=== PATIENT | female | born 1985 | race Caucasian/White ===

== ENCOUNTER 2022-09-26 16:26 | Emergency (ER) | payer MEDICAID ==
[~2022-09-26] VITALS: Ht 170.2 cm; Wt 77.0 kg
[2022-09-26 16:31] VITALS: BP 112/75
[2022-09-26] MEDS ORDERED: acetaminophen 325mg tablet PO ONE (17:10)
[2022-09-26] MEDS ORDERED: ipratropium/albuterol 3ml nebule IH ONE (17:15)
[2022-09-26] MEDS ORDERED: ALBU18HF2 INH (17:35)
== END 2022-09-26 18:08 | disposition home or self-care (01) ==
LOC: ER 16:27
DX: B34.9 Viral infection, unspecified (principal); Z20.822 Contact with and (suspected) exposure to COVID-19; R50.9 Fever, unspecified; Z79.899 Other long term (current) drug therapy
CPT/HCPCS: 87502; 87503; 87635; 94640; 99283; C9803; 94760

== ENCOUNTER 2023-10-15 20:31 | Emergency (ER) | payer MEDICAID ==
[~2023-10-15] VITALS: Ht 170.2 cm; Wt 73.7 kg
[~2023-10-15 20:31] MED LIST: ALBU18HF2 INH
[2023-10-15 21:12] LABS: BASOPHILS % (AUTO) 0.6 % (0-1); EOSINOPHILS # (AUTO) 0.1 X10'3 (0-0.9); EOSINOPHILS % (AUTO) 1.5 % (0-6); HEMATOCRIT 33.8 % (35.0-45.0); HEMOGLOBIN 12.1 g/dl (12.0-16.0); LYMPHOCYTES # (AUTO) 2.9 X10'3 (1.1-4.8); LYMPHOCYTES % (AUTO) 33.9 % (21-51); MEAN CORPUSCULAR HEMOGLOBIN 31.9 PG (27.0-31.0); MEAN CORPUSCULAR HGB CONC 35.6 g/dL (33.0-36.5); MEAN CORPUSCULAR VOLUME 89.6 FL (78-98); MEAN PLATELET VOLUME 7.9 FL (7.4-10.4); MONOCYTES # (AUTO) 0.9 X10'3 (0-0.9); MONOCYTES % (AUTO) 10.8 % (2-12); NEUTROPHILS # (AUTO) 4.6 X10'3 (1.8-7.7); NEUTROPHILS % (AUTO) 53.2 % (42-75); PLATELET COUNT 301 X10'3 (140-440); RED BLOOD COUNT 3.78 X10'6 (4.20-5.60); RED CELL DISTRIBUTION WIDTH 12.7 % (11.5-14.5); WHITE BLOOD COUNT 8.6 X10'3 (4.5-11.0)
[2023-10-15 21:32] LABS: ALANINE AMINOTRANSFERASE 21 U/L (12-78); ALBUMIN 3.8 G/DL (3.4-5.0); ALBUMIN/GLOBULIN RATIO 1.1 (1.1-1.5); ALKALINE PHOSPHATASE 41 IU/L (46-116); ANION GAP 8 (8-16); ASPARTATE AMINO TRANSFERASE 11 U/L (10-37); BILIRUBIN,TOTAL 0.3 MG/DL (0.1-1.0); BLOOD UREA NITROGEN 16 MG/DL (7-18); BUN/CREATININE RATIO 18.4 (10.0-20.0); CALCIUM 8.9 MG/DL (8.5-10.1); CHLORIDE 102 MMOL/L (99-107); CREATININE 0.87 MG/DL (0.40-0.90); GLUCOSE 109 MG/DL (70-104); POTASSIUM 3.5 MMOL/L (3.5-5.1); SODIUM 139 MMOL/L (135-145); TOTAL CARBON DIOXIDE 28.9 MMOL/L (24-32); TOTAL PROTEIN 7.2 G/DL (6.4-8.2); eCRCL 86 ML/MIN; eGFR 73 ML/MIN
[2023-10-15 21:41] LABS: PRO BRAIN NATRIURETIC PEPTIDE < 30 PG/ML (0-125)
[2023-10-15 23:18] VITALS: BP 116/62; PULSE 68; RESP 16; TEMP 97.8; O2SAT 99
== END 2023-10-15 23:19 | disposition home or self-care (01) ==
LOC: ER 20:31
DX: R07.89 Other chest pain (principal)
CPT/HCPCS: 36415; 71045; 80053; 83880; 84484; 85025; 93005; 99285

== ENCOUNTER 2024-04-28 02:43 | Emergency (ER) | payer MEDICAID ==
[~2024-04-28] VITALS: Ht 170.2 cm; Wt 72.7 kg
[2024-04-28 04:29] LABS: BILIRUBIN,URINE NEGATIVE (Neg); CLARITY,URINE CLEAR (Clear); COLOR,URINE STRAW (Yellow); GLUCOSE, URINE NEGATIVE (Neg); KETONES,URINE NEGATIVE (Neg); LEUKOCYTE ESTERASE ,URINE NEGATIVE (Neg); NITRITES, URINE NEGATIVE (Neg); OCCULT BLOOD,URINE NEGATIVE (Neg); PH,URINE 5.5 (4.8-8.0); PROTEIN,URINE NEGATIVE (Neg); UROBILINOGEN,URINE 0.2 E.U/dL (0.2-1.0)
[2024-04-28 04:31] LABS: BASOPHILS # (AUTO) 0.1 X10'3 (0-0.2); BASOPHILS % (AUTO) 0.9 % (0-1); EOSINOPHILS # (AUTO) 0.1 X10'3 (0-0.9); EOSINOPHILS % (AUTO) 1.8 % (0-6); HEMATOCRIT 34.7 % (35.0-45.0); LYMPHOCYTES # (AUTO) 2.2 X10'3 (1.1-4.8); LYMPHOCYTES % (AUTO) 37.4 % (21-51); MEAN CORPUSCULAR HEMOGLOBIN 30.8 PG (27.0-31.0); MEAN CORPUSCULAR HGB CONC 34.6 g/dL (33.0-36.5); MEAN PLATELET VOLUME 7.7 FL (7.4-10.4); MONOCYTES # (AUTO) 0.6 X10'3 (0-0.9); MONOCYTES % (AUTO) 10.5 % (2-12); NEUTROPHILS # (AUTO) 2.9 X10'3 (1.8-7.7); NEUTROPHILS % (AUTO) 49.4 % (42-75); PLATELET COUNT 303 X10'3 (140-440); RED CELL DISTRIBUTION WIDTH 13.3 % (11.5-14.5)
[2024-04-28 04:35] LABS: ANION GAP 6 (8-16); BLOOD UREA NITROGEN 12 MG/DL (7-18); BUN/CREATININE RATIO 14.1 (10.0-20.0); CALCIUM 9.4 MG/DL (8.5-10.1); CHLORIDE 104 MMOL/L (99-107); CREATININE 0.85 MG/DL (0.40-0.90); GLUCOSE 102 MG/DL (70-104); POTASSIUM 3.9 MMOL/L (3.5-5.1); SODIUM 141 MMOL/L (135-145); TOTAL CARBON DIOXIDE 30.9 MMOL/L (24-32); eCRCL 88 ML/MIN; eGFR 75 ML/MIN
[2024-04-28 04:36] LABS: UA COLLECTION TYPE CLN CATCH MIDSTREAM
[2024-04-28 04:37] LABS: URINE AMPHETAMINE SCREEN POSITIVE (Neg); URINE BARBITUATE SCREEN NEGATIVE (Neg); URINE BENZODIAZEPINES SCREEN NEGATIVE (Neg); URINE CANNABINOID SCREEN NEGATIVE (Neg); URINE COCAINE SCREEN NEGATIVE (Neg); URINE METHADONE SCREEN NEGATIVE (Neg); URINE OPIATE SCREEN NEGATIVE (Neg); URINE PHENCYCLIDINE SCREEN NEGATIVE (Neg)
[2024-04-28] MEDS: diphenhydrAMINE 25mg capsule PO ONE (05:25)
[2024-04-28] MEDS: magnesium oxide 400mg tablet PO ONE (05:26)
[2024-04-28 05:31] VITALS: BP 116/87; PULSE 70; RESP 16; TEMP 98.5; O2SAT 100
== END 2024-04-28 05:34 | disposition home or self-care (01) ==
LOC: ER 02:43
DX: R20.2 Paresthesia of skin (principal); F17.200 Nicotine dependence, unspecified, uncomplicated; Z79.899 Other long term (current) drug therapy
CPT/HCPCS: 36415; 80048; 80305; 81003; 83735; 85025; 99283

== ENCOUNTER 2024-07-12 14:41 | Emergency (ER) | payer MEDICAID ==
[~2024-07-12] VITALS: Ht 170.2 cm; Wt 59.1 kg
[2024-07-12 14:49] VITALS: BP 118/57; PULSE 89; TEMP 97.8; O2SAT 97
[2024-07-12] MEDS ORDERED: tetanus & diphtheria toxoid (Td) vaccine 0.5ml IMVAC ONE (15:30)
[2024-07-12] MEDS ORDERED: CEPH-585 PO (15:32)
[2024-07-12 15:35] VITALS: RESP 18
[2024-07-12] MEDS: cephalexin 500mg capsule PO ONE (15:35)
[2024-07-12] MEDS: HYDROcodone/acetaminophen 10/325mg tab PO ONE (15:35)
[2024-07-12] MEDS: TETanus/Pertussis (Acell)/Diphther VAC/PF (Tdap-Adult) 0.5ml syringe IMVAC ONE (15:36)
[2024-07-12] MEDS: cephalexin 250mg capsule PO ONE (15:43)
== END 2024-07-12 16:13 | disposition home or self-care (01) ==
LOC: ER 14:42
DX: S91.341A Puncture wound with foreign body, right foot, initial encounter (principal); S91.321A Laceration with foreign body, right foot, initial encounter; W45.0XXA Nail entering through skin, initial encounter; Y93.89 Activity, other specified; Y92.89 Other specified places as the place of occurrence of the external cause; Y99.8 Other external cause status; F15.10 Other stimulant abuse, uncomplicated
CPT/HCPCS: 90471; 90715; 99283

== ENCOUNTER 2024-07-17 00:22 | Emergency (ER) | payer MEDICAID ==
[~2024-07-17] VITALS: Ht 170.2 cm; Wt 66.6 kg
[~2024-07-17 00:22] MED LIST changes: +CEPH-585 PO
[2024-07-17] MEDS: naproxen 500mg tablet PO ONE (01:17)
[2024-07-17] MEDS: HYDROcodone/acetaminophen 10/325mg tab PO ONE (01:18)
[2024-07-17] MEDS: amox tr/potassium clavulanate 875/125mg TAB PO ONE (01:18)
[2024-07-17] MEDS: LIDOcaine 1% W/epiNEPHrine 1:100,000 20ml vial IJ ONE (01:28)
[2024-07-17] MEDS ORDERED: AMOX-580 PO (02:36)
[2024-07-17 02:52] VITALS: BP 110/67; PULSE 62; RESP 16; TEMP 97.9; O2SAT 99
== END 2024-07-17 02:57 | disposition home or self-care (01) ==
LOC: ER 00:23
DX: S01.411A Laceration without foreign body of right cheek and temporomandibular area, initial encounter (principal); S11.81XA Laceration without foreign body of other specified part of neck, initial encounter; S01.01XA Laceration without foreign body of scalp, initial encounter; Z79.2 Long term (current) use of antibiotics; W54.0XXA Bitten by dog, initial encounter; Y93.89 Activity, other specified; Y92.89 Other specified places as the place of occurrence of the external cause; Y99.8 Other external cause status
CPT/HCPCS: 12001; 12015; 99284; J3490; A6212; A6222; A6449

== ENCOUNTER 2024-07-19 16:52 | Emergency (ER) | payer MEDICAID ==
[~2024-07-19] VITALS: Ht 170.2 cm; Wt 66.8 kg
[~2024-07-19 16:52] MED LIST changes: +AMOX-580 PO
[2024-07-19 18:25] VITALS: BP 110/60; PULSE 72; RESP 16; TEMP 97.7; O2SAT 99
== END 2024-07-19 18:26 | disposition home or self-care (01) ==
LOC: ER 16:53
DX: Z48.00 Encounter for change or removal of nonsurgical wound dressing (principal); Z79.2 Long term (current) use of antibiotics; Z79.899 Other long term (current) drug therapy
CPT/HCPCS: 99281

== ENCOUNTER → 2025-03-28 | Emergency (ER) | payer MEDICAID ==
[~2025-03-28] VITALS: Ht 170.2 cm; Wt 68.2 kg
[~2025-03-28] MED LIST changes: -AMOX-580 PO; +PHEN-786 PO
[2025-03-28 10:35] VITALS: BP 125/74; PULSE 67; RESP 18; O2SAT 100
--- NOTE | 2025-03-28 11:02 | Physician Documentation ---
History of Present Illness ~ Chief Complaint: Urinary Symptoms Stated Complaint: URINARY COMPLICATIONS Time Seen by MD: 10:48 Primary Medical Doctor: Jeyson Harp [facility] This is a 39-year-old female who presents with four days of dysuria and urinary frequency, patient reports no fever, flank pain, or abdominal pain. Patient reports no blood in urine. Patient reports no other acute symptoms or concerns. Patient reports these symptoms are consistent with her previous UTIs. Medication Reconciliation Allergies: Coded Allergies: No Known Allergies (Unverified , 07/19/24) Scheduled Albuterol Sulfate (Ventolin Hfa), 2 PUFFS INH Q4HPRN Cephalexin*Monohydrate* (Keflex*), 1 CAP PO QID Cephalexin*Monohydrate* (Keflex*), 1 CAP PO QID Phenazopyridine Hcl (Pyridium tablet), 1 TAB PO Q8H Past Medical History Past Medical History: No Pertinent History, *PSYCH* Past Surgical History: no surgical history Alcohol Use: None Drug Use: none Review of Systems ROS Dysuria and urinary frequency as stated above in the HPI, otherwise all systems are reviewed and negative. Physical Exam Vital Signs: Temperature: 97.6, Source: Temporal, Heart Rate: 67, Respiratory Rate: 18, BP: 125/74, Pulse Oximetry: 100, Weight: 68.200 Oxygen Flow Rate: 0 Physical Exam VITALS: Reviewed and as above. GENERAL: Alert, nontoxic appearing, no apparent distress. RESPIRATORY: No increased work of breathing, no respiratory distress, speaking in full clear sentences BACK: No CVA tenderness GI: Soft, nontender, no rebound, no guarding, bowel sounds present Progress Results/Orders Results/Orders Vital Signs 03/28/25 03/28/25 10:35 12:03 Temp 97.6 97.6 Pulse 67 Resp 18 B/P (MAP) 125/74 Pulse Ox 100 O2 Flow Rate 0 Laboratory Tests Test 03/28/25 10:37 Urine Specimen Description Cln catch midstream Urine Color Yellow Urine Clarity Slightly cloudy Urine pH 7.0 Urine Specific [place] <=1.005 Urine Protein Negative Urine Glucose (UA) Negative Urine Ketones Negative Urine Occult Blood Small Urine Nitrite Negative Urine Bilirubin Negative Urine Urobilinogen 0.2 Urine Leukocyte Esterase Moderate H Urine RBC 0-2 Urine WBC Tntc H Urine WBC Clumps Few Urine Squamous Epithelial Cells Few Urine Bacteria 1+ Urine Mucus None seen Urine Culture Indicated Indicated Volume Urine Centrifuged 10 ml Urine HCG, Qualitative Negative Urine Comment Microbiology Date/Time Source Procedure Growth Status 03/28/25 11:19 Urine Clean Catch Midstream Urine Culture - Preliminary Culture received. Resulted Medical Decision Making Findings This 39-year-old female presented with dysuria consistent with her previous UTIs, lab work demonstrated evidence of UTI. Patient reported feeling otherwise well and physical exam was benign, patient is well-appearing and nontoxic, hemodynamically stable and appropriate for outpatient follow up. Patient discharged on course of oral antibiotics. Patient provided home care instructions, return to care precautions, and follow up instructions. Urinary Diff Dx:Considerations: Include: Musculoskeletal pain, Ovarian torsion, Pyelonephritis, Renal failure, Urolithiasis, Urinary retention Departure Disposition: HOME / SELF CARE / HOMELESS Impression: Primary Impression: Acute urinary tract infection Condition: Improved Discharge Instructions: Urinary Tract Infection, Adult Additional Instructions: Please take antibiotics as prescribed, stay well hydrated. Please follow up with your primary care provider in the next few days. Please return to the emergency department for any new or worsening concerning symptoms. Referrals: NO PRIMARY CARE PROVIDER (PCP) Prescriptions Phenazopyridine Hcl (Pyridium tablet) 100 Mg Tablet 1 TAB PO Q8H for urinary discomfort for 2 Days, #6 TAB 0 Refills Prov: XIOMARA LONGO 03/28/25 Cephalexin*Monohydrate* (Keflex*) 500 Mg Capsule 1 CAP PO QID, #20 CAP Prov: XIOMARA LONGO 03/28/25 Education Educated: Patient Educated regarding: diagnosis, treatment, prognosis, need for follow up Signature Scribe Signature: No scribe Attestation: The note accurately reflects work and decisions made by me.THAI Garay 03/28/25 21:46 XIOMARA LONGO Mar 28, 2025 11:02
[2025-03-28 11:09] LABS: LEUKOCYTE ESTERASE ,URINE MODERATE (Neg); NITRITES, URINE NEGATIVE (Neg); OCCULT BLOOD,URINE SMALL (Neg); URINE HCG NEGATIVE (NEG)
[2025-03-28 11:17] LABS: UA COLLECTION TYPE CLN CATCH MIDSTREAM
[2025-03-28 11:19] LABS: MUCUS STRANDS NONE SEEN /LPF (Neg); SQUAMOUS EPITHELIAL CELL,UR FEW /LPF (FEW); WBC CLUMPS,URINE FEW /HPF (NEGATIVE)
[2025-03-28 12:03] VITALS: TEMP 97.6
== END | disposition home or self-care (01) ==
LOC: ER 10:27
DX: N39.0 Urinary tract infection, site not specified (principal)
CPT/HCPCS: 81001; 81025; 87077; 87088; 87186; 99283

== ENCOUNTER 2025-04-09 16:50 | Emergency (ER) | payer MEDICAID ==
[~2025-04-09] VITALS: Ht 167.6 cm; Wt 61.4 kg
--- NOTE | 2025-04-09 17:21 | Physician Documentation ---
History of Present Illness ~ Chief Complaint: Flu Symptoms Stated Complaint: SICK/BODY ACHES Time Seen by MD: 18:32 Primary Medical Doctor: Jeyson Harp [employer] 39 year old female with a history of asthma presents to the emergency department for two days of symptoms that include headache, body aches, fever, cough, shortness of breath. She has had some nausea, abdominal pain as well. Took acetaminophen earlier which was minimally helpful in alleviating her symptoms. Positive sick contacts with significant other. She was treated a proximally two weeks ago for urinary tract infections and she reports that she is not suffering from any urinary tract infection symptoms at this time but she would not take any medications that has she forgot to take them as they were dosed 4 times a day. Medication Reconciliation Allergies: Coded Allergies: No Known Allergies (Unverified , 04/09/25) Scheduled Albuterol Sulfate (Ventolin Hfa), 2 PUFFS INH Q4HPRN Cephalexin*Monohydrate* (Keflex*), 1 CAP PO QID Cephalexin*Monohydrate* (Keflex*), 1 CAP PO QID Phenazopyridine Hcl (Pyridium tablet), 1 TAB PO Q8H Past Medical History Past Medical History: No Pertinent History, *PSYCH* Past Surgical History: no surgical history Alcohol Use: None Drug Use: none Review of Systems ROS As stated above in the HPI, otherwise all systems are reviewed and negative. Physical Exam Vital Signs: Temperature: 100.8, Source: Temporal, Heart Rate: 112, Respiratory Rate: 18, BP: 114/62, Pulse Oximetry: 99, Weight: 61.360 Oxygen Flow Rate: 0 Physical Exam General: Alert, cooperative in no acute distress Neck: Full range of motion. Respiratory: Scattered rhonchi, no distress. Chest: No accessory muscle use. Clear to auscultation bilaterally without wheezing Cardiovascular: Tachycardic and regular., no murmurs. Tachycardic. Gastrointestinal: Soft, nontender, nondistended. Bowels sounds present. Extremities: Normal range of motion, no deformity. Neurologic: Oriented x4. Psychiatric: Normal mood and affect. Skin: Normal color, warm and dry. No edema, no ecchymosis. Progress Results/Orders Results/Orders Completed Orders - JHON GROVE MD Acetaminophen 325mg Tablet (Tylenol Tabl (04/09/25 18:45) Hydrocodone/Apap 5/325mg Tab (Brightwood 5/32 (04/09/25 18:50) Benzonatate Capsule (Tessalon Perles Cap (04/09/25 19:35) Ua W/Microscopic, Cult If Ind (04/09/25 19:20) Medications Received in ER Medications (Trade) Dose Ordered Sig/Evgeny Route PRN Reason Start Time Stop Time Status Last Admin Dose Admin (Naprosyn tablet) 500 mg ONCE ONCE PO 04/09/25 17:25 04/09/25 17:26 DC 04/09/25 18:44 500 MG (Zofran ODT tablet) 4 mg ONCE ONCE PO 04/09/25 17:25 04/09/25 17:26 DC 04/09/25 18:43 4 MG (Tylenol tablet) 975 mg ONCE ONCE PO 04/09/25 18:45 04/09/25 18:46 DC 04/09/25 19:32 650 MG (Brightwood 5/325mg tablet) 1 tab ONCE ONCE PO 04/09/25 18:50 04/09/25 18:51 DC 04/09/25 19:31 1 TAB Vital Signs 04/09/25 04/09/25 04/09/25 16:53 18:53 19:31 Temp 100.8 Pulse 112 Resp 18 16 17 B/P (MAP) 114/62 Pulse Ox 99 O2 Flow Rate 0 Laboratory Tests Test 04/09/25 19:20 Urine Specimen Description Cln catch midstream Urine Color Yellow Urine Clarity Clear Urine pH 6.0 Urine Specific [place] <=1.005 Urine Protein Negative Urine Glucose (UA) Negative Urine Ketones Negative Urine Occult Blood Trace-intact Urine Nitrite Negative Urine Bilirubin Negative Urine Urobilinogen 0.2 Urine Leukocyte Esterase Negative Urine RBC None seen Urine WBC 0-4 Urine Squamous Epithelial Cells Few Urine Bacteria None seen Urine Culture Indicated Not ind Volume Urine Centrifuged 10 ml Urine Comment EKG/XRAY/CT/US/VASC/MRI Chest X-Ray : Additional Comments [address], [facility] [address] DIAGNOSTIC RADIOLOGY Patient: SULAIMAN HAWLEY Medical Record: [id number] [facility] : 1985, Age: 39 Sex: Female Location: ER Patient Status: [facility] ER Service Date/Time: 04/09/251722 Ordering Physician: BERTA KWAN [employer]PER[employer] HELPER Exam: CHEST,SINGLE VIEW CHEST RADIOGRAPH REASON FOR EXAM: fever COMPARISON: DI CHEST,SINGLE VIEW on DOS: 10/15/23 TECHNIQUE: One view of the chest is provided FINDINGS: The cardiomediastinal silhouette is within normal limits for technique. There is no focal airspace disease. There is no significant pleural effusion. No acute bony abnormality is identified. IMPRESSION: No radiographic evidence of acute cardiopulmonary process. Electronically Signed by:TOBI CHOE MD Date & Time: 04/09/251735 Dictated by: TOBI CHOE MD Dictation date and time: 04/09/251735 Primary Care Provider: NO PRIMARY CARE PROVIDER cc: BERTA KWAN [employer]IL[employer] OPERATOR HELPER ~ Medical Decision Making Findings Patient presents to the emergency room with generalized symptoms as per HPI. Differentials include but are not limited to viral syndrome, pneumonia, urinary tract infection, sepsis therefore emergent urinalysis ordered which was reassuri ng. Given patient's general symptoms she is likely suffering from viral syndrome. Symptomatic treatment only at this time. Departure Disposition: 01 HOME / SELF CARE / HOMELESS Impression: Primary Impression: Viral infection Condition: Stable Discharge Instructions: Viral Illness Referrals: NO PRIMARY CARE PROVIDER (PCP) Prescriptions Hydrocodone Bit/Acetaminophen 5/325 MG (Brightwood 5/325 MG) 5 Mg/325 Mg Tablet 1 TAB PO Q4-6 hours PRN for pain, #5 TAB Prov: JHON GROVE MD 04/09/25 Benzonatate* (Benzonatate*) 100 Mg Capsule 1-2 CAP PO Q6H PRN for cough, #30 CAP Prov: JHON GROVE MD 04/09/25 Ondansetron 8mg ODT (Ondansetron Odt) 8 Mg Tab.rapdis 1 TAB PO Q6H for nausea/vomiting for 3 Days, #12 TAB 0 Refills Prov: JHON GROVE MD 04/09/25 Naproxen (Naproxen) 500 Mg Tablet 1 TAB PO Q12H, #20 TAB Prov: JHON GROVE MD 04/09/25 Education Educated: Patient Educated regarding: diagnosis, treatment, need for follow up Signature Scribe Signature: x Attestation: The note accurately reflects work and decisions made by me.Jhon Grove MD 04/09/25 20:01 The note accurately reflects work and decisions made by me.Berta Jefferson NP 04/09/25 17:21 BERTA KWAN NP Apr 09, 2025 17:21 JHON GROVE MD Apr 09, 2025 18:56
--- NOTE | 2025-04-09 17:39 | RADIOLOGY REPORT ---
CHEST RADIOGRAPH REASON FOR EXAM: fever COMPARISON: DI CHEST,SINGLE VIEW on DOS: 10/15/23 TECHNIQUE: One view of the chest is provided FINDINGS: The cardiomediastinal silhouette is within normal limits for technique. There is no focal a irspace disease. There is no significant pleural effusion. No acute bony abnormality is identified. IMPRESSION: No radiographic evidence of acute cardiopulmonary process.
[2025-04-09] MEDS: ondansetron 4mg rapidly disintigrating tab PO ONE (18:43)
[2025-04-09] MEDS: HYDROcodone/acetaminophen 5mg/325mg tablet PO ONE (19:31)
[2025-04-09 19:35] LABS: LEUKOCYTE ESTERASE ,URINE NEGATIVE (Neg); NITRITES, URINE NEGATIVE (Neg); OCCULT BLOOD,URINE TRACE-INTACT (Neg)
[2025-04-09 19:45] LABS: UA COLLECTION TYPE CLN CATCH MIDSTREAM
[2025-04-09 19:48] LABS: SQUAMOUS EPITHELIAL CELL,UR FEW /LPF (FEW)
[2025-04-09] MEDS ORDERED: HYDR-3965 PO (20:01)
[2025-04-09] MEDS ORDERED: ONDA-245 PO (20:01)
[2025-04-09] MEDS ORDERED: BENZ-38 PO (20:01)
[2025-04-09] MEDS ORDERED: NAPR-56 PO (20:01)
[2025-04-09 20:22] VITALS: BP 120/87; PULSE 99; RESP 17; TEMP 100.8; O2SAT 100
== END 2025-04-09 20:27 | disposition home or self-care (01) ==
LOC: ER 16:51
DX: B34.9 Viral infection, unspecified (principal); J45.909 Unspecified asthma, uncomplicated
CPT/HCPCS: 71045; 81001; 99284